=== PATIENT | female | born 1955 | race Native Hawaiian/Other Pacific Islander ===

== ENCOUNTER 2017-01-28 07:45 | Outpatient (CLI) | payer OTHER ==
[~2017-01-28 07:45] MED LIST: LORTAB1 TAB PO
== END 2017-01-28 19:34 | disposition home or self-care (01) ==
LOC: LABW 07:45
DX: R39.15 Urgency of urination (principal)
CPT/HCPCS: 82043; 82570

== ENCOUNTER 2018-07-18 13:51 | Outpatient (CLI) | payer OTHER | END 2018-07-18 22:31 | disposition home or self-care (01) | LOC: LAB 13:51 | DX: N61.1 Abscess of the breast and nipple (principal) | CPT/HCPCS: 87070; 87076; 87205 ==

== ENCOUNTER 2018-08-08 09:42 | Observation (INO) | payer OTHER ==
[2018-08-08] VITALS (8 sets, daily range): BP systolic 103–146; BP diastolic 41–70; TEMP 97.5–98.2; Ht 165.1 cm; Wt 80.7 kg
[~2018-08-08] VITALS: Ht 165.1 cm; Wt 80.7 kg
[2018-08-08 11:24] LABS: PLATELET COUNT 198 K/uL (152-353)
[2018-08-08 11:29] LABS: POTASSIUM 4.5 mmol/L (3.6-5.2)
[2018-08-09] VITALS: BP 112/55; TEMP 98.3
[2018-08-09 04:00] VITALS: BP 114/58; TEMP 98.7
[2018-08-09 04:52] LABS: PLATELET COUNT 182 K/uL (152-353)
[2018-08-09 05:34] LABS: POTASSIUM 4.5 mmol/L (3.6-5.2)
[2018-08-09 07:00] VITALS: BP 122/59; TEMP 98.2
== END 2018-08-09 11:00 | disposition home or self-care (01) ==
LOC: MED/SURG 09:42
PROVIDERS: ADMIT Family Medicine
PROC: 0H9UXZZ (ICD-10-PCS; principal; 2018-08-08)
DX: N61.1 Abscess of the breast and nipple (principal); E86.0 Dehydration; R11.2 Nausea with vomiting, unspecified
CPT/HCPCS: 36415; 80053; 81000; 83735; 85027; 87040; 87070; 87205; 96365; 96366; 96367; 99220; G0378; G0379; J0132; J1100; J1170; J1885; J2001; J2250; J2405; J2543; J2704; J2765; J3010; J3490

== ENCOUNTER → 2020-09-24 | Outpatient (CLI) | payer OTHER ==
[2020-09-24 11:05] LABS: PLATELET COUNT 170 K/uL (152-353)
[2020-09-24 11:37] LABS: SODIUM 138 mmol/L (136-145)
== END | disposition home or self-care (01) ==
LOC: LABW
PROVIDERS: ATTEND Nurse Practitioner Family
DX: R07.89 Other chest pain (principal); R73.9 Hyperglycemia, unspecified
CPT/HCPCS: 36415; 80053; 82550; 82553; 83036; 84443; 84484; 85027; 85379

== ENCOUNTER 2021-06-09 07:43 | Outpatient (CLI) | payer OTHER | END 2021-06-09 19:17 | disposition home or self-care (01) | LOC: CT 07:43 | PROVIDERS: ATTEND Internal Medicine | DX: Z90.5 Acquired absence of kidney (principal) | CPT/HCPCS: 36415; 82565; 84520; Q9963 ==

== ENCOUNTER 2021-08-05 17:41 | Emergency (ER) | payer OTHER ==
[~2021-08-05] VITALS: Ht 165.1 cm; Wt 80.7 kg
[2021-08-05 17:47] VITALS: TEMP 98.3
[2021-08-05 18:16] LABS: PLATELET COUNT 187 K/uL (152-353)
[2021-08-05 18:25] LABS: SODIUM 139 mmol/L (136-145)
[2021-08-05 18:41] LABS: PARTIAL THROMBOPLASTIN TIME 23.9 SECONDS (24.5-33.6)
[2021-08-05 19:05] VITALS: BP 140/78
== END 2021-08-05 19:05 | disposition home or self-care (01) ==
LOC: ED 17:41
PROVIDERS: Hospitalist
DX: R42 Dizziness and giddiness (principal)
CPT/HCPCS: 80053; 81000; 82550; 83880; 84484; 85027; 85610; 85730; 93005; 96360; 99284

== ENCOUNTER 2022-01-13 14:41 | Outpatient (CLI) | payer OTHER ==
[2022-01-13 15:02] LABS: POTASSIUM 3.8 mmol/L (3.6-5.2)
[2022-01-13 15:20] LABS: PLATELET COUNT 156 K/uL (152-353)
== END 2022-01-13 19:04 | disposition home or self-care (01) ==
LOC: LABW 14:41
PROVIDERS: ATTEND Nurse Practitioner Family
DX: Z95.5 Presence of coronary angioplasty implant and graft (principal); Z79.899 Other long term (current) drug therapy
CPT/HCPCS: 36415; 80053; 82550; 84484; 85027; 85379